=== PATIENT | female | born 1985 | race African-American/Black ===

== ENCOUNTER → 2016-05-28 | Outpatient (CLI) | payer OTHER ==
[2014-01-19 19:29] VITALS: BP 125/81
[~2016-05-28] MED LIST: TOPI25TA32 PO
--- NOTE | 2016-05-28 15:20 | KCIC ---
Ultrasound pelvis with transvaginal Indication: Left-sided low abdominal pain radiating to the pelvis. Transabdominal and transvaginal pelvic sonography was performed. The uterus measures 8.7 x 5.0 x 4.0 centimeters. The endometrium is 6 millimeters in thickness. No uterine mass is detected. The right ovary measures 2.4 x 1.9 x 1.8 centimeters and the left ovary measures 3.6 x 1.6 x 1.6 centimeters. There is blood flow to both ovaries. No adnexal mass or free fluid is identified. Impression: Unremarkable transabdominal and transvaginal pelvic ultrasound. Electronically signed by: Chilo Teixeira MD (May 28, 2016 15:18:36)
== END | disposition home or self-care (01) ==
LOC: KCIC US 14:11
PROVIDERS: ATTEND Obstetrics & Gynecology
DX: R10.30 Lower abdominal pain, unspecified (principal)
CPT/HCPCS: 76830; 76856